=== PATIENT | female | born 1985 | race Caucasian/White ===

== ENCOUNTER 2017-04-16 05:46 | Day surgery (SDC) | payer OTHER ==
[~2017-04-16 05:46] MED LIST: KETO10TA2 PO
[2017-04-16] MEDS ORDERED: ULTRACET PO (09:48)
== END 2017-04-16 12:50 | disposition home or self-care (01) ==
LOC: CIR.AMB 05:46
DX: K80.10 Calculus of gallbladder with chronic cholecystitis without obstruction (principal)

== ENCOUNTER 2017-08-24 11:29 | Emergency (ER) | payer OTHER ==
[~2017-08-24] VITALS: Ht 157.5 cm; Wt 94.3 kg
[~2017-08-24 11:29] MED LIST changes: +ULTRACET PO
== END 2017-08-24 13:57 | disposition home or self-care (01) ==
LOC: ER 11:29
DX: M54.5 Low back pain (principal)